=== PATIENT | female | born 1970 | race Caucasian/White ===

== ENCOUNTER 2021-02-18 19:10 | Emergency (ER) | payer OTHER ==
[~2021-02-18] VITALS: Ht 154.9 cm; Wt 50.3 kg
[2021-02-18 19:31] VITALS: BP 132/67
[2021-02-18] MEDS ORDERED: ALBUTEROL SULFATE/IPRATROPIU 3 ML SOL IH ONE (20:45)
[2021-02-18] MEDS ORDERED: AZITHROMYCIN 250 MG TAB PO ONE (20:45)
--- NOTE | 2021-02-18 20:50 | NUR ---
PT TAKEN TO [facility] FROM [facility]
[2021-02-18] MEDS ORDERED: ALBU0.0912 IH (21:35)
[2021-02-18] MEDS ORDERED: PRED20TA5 PO (21:35)
[2021-02-18] MEDS ORDERED: AMOX500C25 PO (21:35)
[2021-02-18 21:50] VITALS: BP 132/67
[2021-02-18] MEDS ORDERED: AZITHROMYCIN 250 MG TAB ONE (21:50)
--- NOTE | 2021-02-18 21:50 | NUR ---
SEE COMPLETE ASSESSMENT
--- NOTE | 2021-02-18 21:59 | NUR ---
COVID SWAB COLLECTED AND GIVEN TO STUFFED CASING TIER
--- NOTE | 2021-02-18 22:00 | NUR ---
Patient discharged with v/s stable. Written and verbal after care instructions given and explained. Patient alert, oriented and verbalized understanding of instructions. Ambulatory with steady gait. All questions addressed prior to discharge. ID band removed. Patient advised to follow up with PMD. Rx of AMOXICILLIN, ALBUTEROL, PREDNISONE given. Patient educated on indication of medication including possible reaction and side effects. Opportunity to ask questions provided and answered.
== END 2021-02-18 22:00 | disposition home or self-care (01) ==
LOC: MED 19:10
DX: L08.9 Local infection of the skin and subcutaneous tissue, unspecified (principal); Z20.822 Contact with and (suspected) exposure to COVID-19; J20.9 Acute bronchitis, unspecified; F17.210 Nicotine dependence, cigarettes, uncomplicated; H54.61 Unqualified visual loss, right eye, normal vision left eye; Z71.6 Tobacco abuse counseling; Z79.899 Other long term (current) drug therapy; Z88.0 Allergy status to penicillin
CPT/HCPCS: 71045; 99284

== ENCOUNTER 2021-02-25 01:10 | Emergency (ER) | payer OTHER ==
[~2021-02-25] VITALS: Ht 142.2 cm; Wt 49.9 kg
[2021-02-25 01:10] VITALS: BP 119/79
[~2021-02-25 01:10] MED LIST: ALBU0.0912 IH; AMOX500C25 PO; PRED20TA5 PO
--- NOTE | 2021-02-25 01:10 | NUR ---
TO LOBBY A/W BED AMBULATORY
--- NOTE | 2021-02-25 02:31 | NUR ---
PATIENT LEFT WITHOUT BEING SEEN BY DR. GREER. NO FURTHER CARE PROVIDED FOR PATIENT.
--- NOTE | 2021-02-25 02:31 | NUR ---
Called patient for a bed-- no answer
--- NOTE | 2021-02-25 02:40 | NUR ---
CALLED FOR THE SECOND TIME, NO RESPONSE
--- NOTE | 2021-02-25 02:50 | NUR ---
CALLED FOR THE THIRD TIME NO RESPONSE
== END 2021-02-25 02:31 | disposition left against medical advice (07) ==
LOC: MED 01:10
DX: R10.31 Right lower quadrant pain (principal); Z53.21 Procedure and treatment not carried out due to patient leaving prior to being seen by health care provider

== ENCOUNTER 2024-01-01 22:19 | Emergency (ER) | payer OTHER ==
[~2024-01-01] VITALS: Ht 162.6 cm; Wt 59.0 kg
[2024-01-01 22:22] VITALS: BP 128/68; PULSE 90; RESP 16; TEMP 97.4; O2SAT 98
== END 2024-01-02 02:42 | disposition left against medical advice (07) ==
LOC: MED 22:19
DX: M79.602 Pain in left arm (principal); Z53.21 Procedure and treatment not carried out due to patient leaving prior to being seen by health care provider